=== PATIENT | male | born 1990 | race Hispanic/Latino ===

== ENCOUNTER 2018-01-14 20:40 | Emergency (ER) | payer BC, SELFPAY ==
[2018-01-14 22:10] LABS: Absolute Lymphocytes (CBC) 2.6 K/uL (0.7-4.9); Absolute Monocytes 0.8 K/uL (0.1-1.3); Absolute Neutrophil 4.9 K/uL (1.8-8.0); Basophils % 0.4 % (0-1.3); Hematocrit 44.3 % (39.6-49.0); MCH 28.7 pg (27.0-35.0); MCV 84.4 fL (80-100); MPV 8.3 fL (7.6-11.3); Monocytes % 9.4 % (3.3-12.3); RBC Red Blood Cell Count 5.25 M/uL (4.33-5.43)
[2018-01-14 22:25] LABS: Albumin 3.7 g/dL (3.4-5.0); Bilirubin Direct 0.1 mg/dL (0-0.2); Bilirubin Total 0.4 mg/dL (0.2-1.0); Potassium 3.6 mmol/L (3.5-5.1); Protein, Total 7.4 g/dL (6.4-8.2)
--- NOTE | 2018-01-14 23:39 | ER ---
Nurse's Notes [facility] Name: Devon Siu Jr Age: 28 yrs Sex: Male : 1990 Arrival Date: 01/14/2018 Time: 20:42 Bed 18 Private MD: Diagnosis: Unspecified abdominal pain Presentation: 01/14 20:51 Presenting complaint: Patient states: RLQ abdominal pain for 2 days with nausea. aj Transition of care: patient was not received from another setting of care. Onset of symptoms was January 12, 2018. Risk Assessment: Do you want to hurt yourself or someone else? Patient reports no desire to harm self or others. Initial Sepsis Screen: Does the patient meet any 2 criteria? No. Patient's initial sepsis screen is negative. Does the patient have a suspected source of infection? No. Patient's initial sepsis screen is negative. Care prior to arrival: None. 20:51 Method Of Arrival: Ambulatory aj 20:51 Acuity: THADDEUS 3 aj Triage Assessment: 20:54 General: Appears in no apparent distress. comfortable, Behavior is calm, cooperative, aj appropriate for age. Pain: Complains of pain in right lower quadrant. Neuro: Level of Consciousness is awake, alert, obeys commands, Oriented to person, place, time, situation, Appropriate for age. Respiratory: Airway is patent Respiratory effort is even, unlabored, Respiratory pattern is regular, symmetrical. GI: Abdomen is flat, non-distended, Reports lower abdominal pain, nausea. Derm: Skin is intact, is healthy with good turgor, Skin is pink, warm \T\ dry. normal. Historical: - Allergies: 20:54 No Known Allergies; aj - Home Meds: 20:54 None [Active]; aj - PMHx: 20:54 None; aj - PSHx: 20:54 None; aj - Immunization history:: Adult Immunizations up to date. - Social history:: Smoking status: Patient uses tobacco products, smokes one-half pack cigarettes per day. - Ebola Screening: : Patient negative for fever greater than or equal to 101.5 degrees Fahrenheit, and additional compatible Ebola Virus Disease symptoms Patient denies exposure to infectious person Patient denies travel to an Ebola-affected area in the 21 days before illness onset No symptoms or risks identified at this time. Screenin/29 00:07 Abuse screen: Denies threats or abuse. Nutritional screening: No deficits noted. tl3 Tuberculosis screening: No symptoms or risk factors identified. Fall Risk None identified. Assessment: 00:07 General: Appears in no apparent distress. comfortable, well groomed, well developed, tl3 well nourished, Behavior is calm, cooperative, appropriate for age. Pain: Complains of pain in suprapubic area and abdomen and right lower quadrant. Neuro: Level of Consciousness is awake, alert, obeys commands, Oriented to person, place, time, situation, Appropriate for age. Cardiovascular: Patient's skin is warm and dry. Respiratory: Airway is patent Respiratory effort is even, unlabored, Respiratory pattern is regular, symmetrical. GI: Abdomen is round. EENT: No signs and/or symptoms were reported regarding the EENT system. Derm: No signs and/or symptoms reported regarding the dermatologic system. Musculoskeletal: No signs and/or symptoms reported regarding the musculoskeletal system. 00:10 GI: Bowel sounds present X 4 quads. Abd is soft and non tender X 4 quads. tl3 Vital Signs: 01/14 20:54 BP 131 / 74; Pulse 85; Resp 17; Temp 97.2; Pulse Ox 98% on R/A; Weight 102.06 kg; aj Height 5 ft. 6 in. (167.64 cm); 01/15 00:07 BP 113 / 85; Pulse 80; Resp 18; Pulse Ox 100% on R/A; tl3 01/14 20:54 Body Mass Index 36.32 (102.06 kg, 167.64 cm) aj ED Course: 01/14 20:42 Patient arrived in ED. ds1 20:54 Triage completed. aj 20:54 Arm band placed on left wrist. Patient placed in waiting room, Patient notified of wait aj time. 21:40 Initial lab(s) drawn, by ks, sent to lab. jp3 21:41 Donald Ly PA is PHCP. jmm 21:41 Jeison Flanagan MD is Attending Physician. jmm 22:07 PHCP role handed off by Donald Ly PA pm1 22:07 Eliel Monroy NP is PHCP. pm1 22:31 Sona Patel, EUGENIO is Primary Nurse. tl3 22:56 CT Abd/Pelvis - W/Contrast In Process Unspecified. EDMS 22:57 Inserted saline lock: 20 gauge in right upper arm, using aseptic technique. Blood jp3 collected. 01/15 00:07 Patient has correct armband on for positive identification. tl3 00:07 No provider procedures requiring assistance completed. IV discontinued, intact, tl3 bleeding controlled, No redness/swelling at site. Pressure dressing applied. Administered Medications: No medications were administered Outcome: 01/14 23:38 Discharge ordered by MD. pm1 01/15 00:07 Discharged to home ambulatory. tl3 Condition: stable Instructed on discharge instructions, Demonstrated understanding of instructions, follow-up care, Prescriptions given X 1. 00:19 Patient left the ED. tl3 Signatures: Dispatcher [employer] EDMS Mellissa Gallegos, RN Donald Jean-Baptiste PA PA jmm Sanford, Demi ds1 Eliel Monroy, BOAT OPERATOR BOAT OPERATOR pm1 Sona Patel RN RN tl3 Shawn Moran jp3
--- NOTE | 2018-01-14 23:39 | EDPHYS ---
Physician Documentation [facility] Name: Devon Siu Jr Age: 28 yrs Sex: Male : 1990 Arrival Date: 01/14/2018 Time: 20:42 Bed 18 Private MD: ED Physician Jeison Flanagan HPI: 01/14 21:52 This 28 yrs old Male presents to ER via Ambulatory with complaints of jmm Abdominal Pain. 21:52 The patient presents with abdominal pain right lower quadrant. Onset: The jmm symptoms/episode began/occurred gradually, 4 day(s) ago. The symptoms radiate to suprapubic area. Associated signs and symptoms: Pertinent negatives: diarrhea, vomiting. The symptoms are described as achy. Modifying factors: The symptoms are alleviated by nothing. This is a 28 year old male with no chronic medical conditions that presents to the ED with right lower abdominal pain for the past 4 days. Patient denies fever, denies vomiting, denies diarrhea. Patient states having a family history of appendicitis. Historical: - Allergies: 20:54 No Known Allergies; aj - Home Meds: 20:54 None [Active]; aj - PMHx: 20:54 None; aj - PSHx: 20:54 None; aj - Immunization history:: Adult Immunizations up to date. - Social history:: Smoking status: Patient uses tobacco products, smokes one-half pack cigarettes per day. - Ebola Screening: : Patient negative for fever greater than or equal to 101.5 degrees Fahrenheit, and additional compatible Ebola Virus Disease symptoms Patient denies exposure to infectious person Patient denies travel to an Ebola-affected area in the 21 days before illness onset No symptoms or risks identified at this time. ROS: 21:52 Constitutional: Negative for fever, chills, and weight loss, Eyes: Negative for injury, jmm pain, redness, and discharge, Cardiovascular: Negative for chest pain, palpitations, and edema, Respiratory: Negative for shortness of breath, cough, wheezing, and pleuritic chest pain. 21:52 Back: Negative for injury and pain, MS/Extremity: Negative for injury and deformity, Skin: Negative for injury, rash, and discoloration, Neuro: Negative for headache, weakness, numbness, tingling, and seizure. 21:52 Abdomen/GI: Positive for abdominal pain. 21:52 All other systems are negative. Exam: 21:52 Constitutional: This is a well developed, well nourished patient who is awake, alert, jmm and in no acute distress. Head/Face: atraumatic. Eyes: EOMI, no conjunctival erythema appreciated ENT: Moist Mucus Membranes Neck: Trachea midline, Supple Chest/axilla: Normal chest wall appearance and motion. Cardiovascular: Regular rate and rhythm. No edema appreciated Respiratory: Normal respirations, no respiratory distress appreciated 21:52 Back: Normal ROM Skin: General appearance color normal MS/ Extremity: Moves all extremities, no obvious deformities appreciated, no edema noted to the lower extremities Neuro: Awake and alert, normal gait Psych: Behavior is normal, Mood is normal, Patient is cooperative and pleasant 21:52 Abdomen/GI: Inspection: abdomen appears normal, Bowel sounds: normal, Palpation: soft, nontender, in all quadrants. Vital Signs: 20:54 BP 131 / 74; Pulse 85; Resp 17; Temp 97.2; Pulse Ox 98% on R/A; Weight 102.06 kg; Height 5 ft. 6 in. (167.64 cm); 01/15 00:07 BP 113 / 85; Pulse 80; Resp 18; Pulse Ox 100% on R/A; tl3 01/14 20:54 Body Mass Index 36.32 (102.06 kg, 167.64 cm) MDM: 01/14 21:51 Patient medically screened. [facility] 21:52 Data reviewed: vital signs, nurses notes. [facility] 21:58 Data reviewed:. Transition of care: After a detail discussion of the patient's case, [facility] care is transferred to Eliel Monroy NP. 23:37 Data interpreted: Pulse oximetry: on room air is 98 %. Interpretation: normal. pm1 Counseling: I had a detailed discussion with the patient and/or guardian regarding: the historical points, exam findings, and any diagnostic results supporting the discharge/admit diagnosis, lab results, radiology results, the need for outpatient follow up, to return to the emergency department if symptoms worsen or persist or if there are any questions or concerns that arise at home. 01/14 21:52 Order name: Basic Metabolic Panel; Complete Time: 22:52 [facility] 01/14 21:52 Order name: CBC with Diff; Complete Time: 22:52 [facility] 01/14 21:52 Order name: Creatinine for Radiology; Complete Time: 22:52 [facility] 01/14 21:52 Order name: Hepatic Function; Complete Time: 22:52 [facility] 01/14 21:52 Order name: Lipase; Complete Time: 22:52 [facility] 01/14 21:52 Order name: CT Abd/Pelvis - W/Contrast [facility] 01/14 21:52 Order name: IV Saline Lock; Complete Time: 22:32 [facility] 01/14 21:52 Order name: Labs collected and sent; Complete Time: 22:32 [facility] Administered Medications: No medications were administered Disposition: 01/15 06:39 Co-signature as Attending Physician, Jeison Flanagan MD Available for consultation at [facility] all times. . Disposition: 01/14/18 23:38 Discharged to Home. Impression: Unspecified abdominal pain. - Condition is Stable. - Discharge Instructions: Abdominal Pain, Adult. - Medication Reconciliation Form, Thank You Letter, Antibiotic Education, Prescription Opioid Use form. - Follow up: Emergency Department; When: As needed; Reason: Worsening of condition. Follow up: Private Physician; When: 2 - 3 days; Reason: Recheck today's complaints, Continuance of care, Re-evaluation by your physician. - Problem is new. - Symptoms have improved. Signatures: Dispatcher [employer] EDMS Mellissa Gallegos, RN RN Donald Sloan PA PA [facility] Eliel Monroy, CONCRETE MIXER OPERATOR HELPER CONCRETE MIXER OPERATOR HELPER pm1 Jeison Flanagan MD MD ps1 Sona Patel, RN RN tl3 Corrections: (The following items were deleted from the chart) 00:19 01/14 23:38 01/14/2018 23:38 Discharged to Home. Impression: Unspecified abdominal tl3 pain. Condition is Stable. Forms are Medication Reconciliation Form, Thank You Letter, Antibiotic Education, Prescription Opioid Use. Follow up: Emergency Department; When: As needed; Reason: Worsening of condition. Follow up: Private Physician; When: 2 - 3 days; Reason: Recheck today's complaints, Continuance of care, Re-evaluation by your physician. Problem is new. Symptoms have improved. pm1
--- NOTE | 2018-01-15 08:40 | RAD REPORT ---
EXAM DESCRIPTION: CT - Abdomen Pelvis W Contrast - 01/15/2018 4:35 am CLINICAL HISTORY: Abdominal pain, nausea, right lower quadrant pain A preliminary report was provided at the time of the study and reviewed prior to final report. COMPARISON: None. TECHNIQUE: Biphasic, helical CT imaging of the abdomen and pelvis was performed following 100 ml non -ionic IV contrast. Oral contrast was given. All CT scans are performed using dose optimization technique as appropriate and may include automated exposure control or mA/KV adjustment according to patient size. FINDINGS: No suspicious findings in the lung bases. The liver, spleen, and pancreas show no suspicious findings. Gallbladder and biliary tree are also wi thout suspicious finding. Gallbladder is contracted likely from nonfasting state. Symmetric renal function is seen with no hydronephrosis or suspicious renal mass. No pyelonephritis o r acute renal parenchymal process. No adrenal abnormality. Contracted urinary bladder is grossly norm al. No prostate gland or seminal vesicle abnormality. No dilated bowel loops or bowel wall thickening. Appendix is normal. No free air, free fluid or infla mmatory stranding. No mass or bulky lymphadenopathy. Patient has a very small umbilical hernia. No suspicious bony findings. IMPRESSION: Contrast enhanced CT abdomen and pelvis showing no significant or suspicious finding.
== END 2018-01-15 00:19 | disposition home or self-care (01) ==
LOC: ER 20:40
DX: R10.31 Right lower quadrant pain (principal)
CPT/HCPCS: 36415; 74177; 80048; 80076; 83690; 85025; 99284; Q9967